=== PATIENT | male | born 1950 | race Caucasian/White ===

== ENCOUNTER → 2020-06-21 12:19 | Outpatient (CLI) | payer MEDICARE, OTHER, SELFPAY ==
[2020-06-14 07:41] VITALS: BMI 33.7
--- NOTE | 2020-06-21 12:45 | CT_ITS ---
STUDY: LOW DOSE CT LUNG CANCER SCREENING REASON FOR EXAM: Male, 69 years old. Screening. Patient smoked 1 pack per day for 30 years. RADIATION DOSAGE (If Supplied By Facility): CTDIvol = ( 4.02 ) mGy, DLP = ( 139.44 ) mGycm TECHNIQUE: No contrast was administered. Low dose technique was utilized (average mAS-38 and kVp 120). 1.25 mm axial source images with a slice interval of 1.25-mm were reconstructed in lung windows. 2.5 mm axial source images with a slice interval of 2.5-mm were reconstructed in lung windows. 5.0 mm axial source images with a slice interval of 5.0-mm were reconstructed in soft tissue windows. Nodule measured using lung windows on PACS and/or independent workstation with automated measurement of minimum and maximum diameter. Nodule measurement reported as average diameter rounded to the nearest whole number. Growth is defined as an increase ins size of greater than 1.5 mm. COMPARISON: None. NODULES: No suspicious nodules are seen. Emphysema: Hyperinflation. Diffuse increased interstitial markings with areas of confluence. Subpleural blebs. Findings are inconclusive for the chronic interstitial fibrosis. Endobronchial lesion: None Aorta: Minimal calcific plaque at the level of the aortic arch. Coronary arteries: Minimal coronary calcification. Mediastinal nodes: Small benign appearing mediastinal lymph nodes. Other chest and abdominal findings: Degenerative changes of the thoracic vertebrae. CT/Low Dose CT Lung Screening IMPRESSION: Lung-RADS category 2 - Continue annual screening with LDCT in 12 months. IMPORTANT NOTES FOR USE: ACR Lung-RADS Version 1.1 Assessment Categories Release Date: 2018 Category: Coded 0-4 bases on nodule(s) with highest degree of suspicion. Negative screen is defined as categories 1 and 2; a positive screen is defined as categories 3 and 4. Category 3 and 4A nodules that are unchanged on interval CT should be coded as category 2, and individuals returned to screening in 12 months. Category 4X: Category 3 or 4 nodules with additional imaging findings that increase the suspicion of lung cancer, such as spiculation, GGN that doubles in size in 1 year, enlarged lymph notes, etc. Category Modifiers: S (significant finding unrelated to lung cancer) Electronically Signed: Louie Dyer MD at 14:36 EDT , Service support ,
== END ==
PROVIDERS: PCP Family Medicine; Referring Provider Internal Medicine Critical Care Medicine; Visit Provider Internal Medicine Critical Care Medicine
DX: Z87.891 Personal history of nicotine dependence (principal)
CPT/HCPCS: 71271

== ENCOUNTER → 2020-06-26 09:33 | Outpatient (CLI) | payer MEDICARE, OTHER, SELFPAY ==
[2020-06-14 07:41] VITALS: BMI 33.7
--- NOTE | 2020-06-27 10:12 | PFT ---
INTRODUCTION: The patient is a 70-year-old male that presents for pulmonary function studies secondary to a diagnosis of shortness of breath. Respiratory therapy reports good patient effort. Bronchodilators were used during testing. INTERPRETATION: Forced expiration spirometry demonstrates no evidence of a large airways obstructive ventilatory defect. There was no significant response to aerosolized bronchodilators. Spirograms are of good quality and plateau normally. Body plethysmography was performed and reveals a decreased TLC to 3.76 L, 62% of predicted, indicative of a moderate restrictive ventilatory impairment. Diffusing capacity by single breath CO is reduced at 37% of predicted. 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
== END ==
PROVIDERS: PCP Family Medicine; Referring Provider Internal Medicine Critical Care Medicine; Visit Provider Internal Medicine Critical Care Medicine
DX: R06.02 Shortness of breath (principal)
CPT/HCPCS: 94060; 94726; 94729

== ENCOUNTER → 2020-07-04 12:38 | Outpatient (CLI) | payer MEDICARE, OTHER, SELFPAY ==
[2020-06-14 07:41] VITALS: BMI 33.7
[2020-07-04 13:02] VITALS: PULSE 60; PULSE 64; PULSE 76; PULSE 77; PULSE 78; PULSE 79; PULSE 81; PULSE 90; O2SAT 86; O2SAT 90; O2SAT 92; O2SAT 93; O2SAT 94; O2SAT 96
--- NOTE | 2020-07-04 13:05 | CPS ---
PATIENT USED CANE DURING 6 MIN WALK TEST FOR STABILITY. PATIENT'S BASELINE RESPIRATORY STATUS TODAY RATED MODERATELY SOB(CURRENTLY HIS BASELINE). WALK BEGAN ON ROOM AIR, SPO2 FELL TO 86% SO PATIENT RESTED, OXYGEN APPLIED AT 2LPM, REMAINED TO 2LPM FOR DURATION OF TESTING. NO OTHER REST BREAKS TAKEN BY PATIENT. PATIENT REQUESTS OXYGEN SET UP BE THROUGH A DME CLOSE TO HIS RESIDENCE IN [place].
--- NOTE | 2020-07-04 14:00 | PCM.PSN.6M ---
PSN 6 Minute Walk Test 6 Minute Walk Test 6 Minute Walk Test: 6 Minute Walk Test PSN:6-Minute Walk Test Start: 07/04/20 13:02 Freq: Status: Active Protocol: [id number] Document 07/04/20 13:02 [facility] (Rec: 07/04/20 13:15 [facility] [id number]) 6 Minute Walk Test Date Performed 07/04/20 Time Performed 12:30 Height 5 ft 8 in Weight: 99.79 kg Weight in Pounds 220.[address]: Eron Huff Assistive device used: Cane Pre-test Oxygen Delivery Method Room Air Pulse Ox (%) 94 Pulse Rate (60-100 beats/min) 60 Dyspnea Rika Scale (0-10) 3 Reported Symptoms Increased Work of Breathing 1st minute Oxygen Delivery Method Room Air Pulse Ox (%) 93 Pulse Rate (60-100 beats/min) 81 Dyspnea Rika Scale (0-10) 4 Number of Rests Taken 0 Reported Symptoms Increased Work of Breathing 2nd minute Oxygen Delivery Method Room Air Pulse Ox (%) 86 Pulse Rate (60-100 beats/min) 90 Dyspnea Rika Scale (0-10) 4 Number of Rests Taken 1 Reported Symptoms Cyanotic,Increased Work of Breathing 3rd minute Oxygen Flow Rate (L/min) (L/min) 2 Oxygen Delivery Method Nasal Cannula Pulse Ox (%) 96 Pulse Rate (60-100 beats/min) 78 Dyspnea Rika Scale (0-10) 3 Number of Rests Taken 0 Reported Symptoms Increased Work of Breathing 4th minute Oxygen Flow Rate (L/min) (L/min) 2 Oxygen Delivery Method Nasal Cannula Pulse Ox (%) 93 Pulse Rate (60-100 beats/min) 77 Dyspnea Rika Scale (0-10) 4 Number of Rests Taken 0 Reported Symptoms Increased Work of Breathing 5th minute Oxygen Flow Rate (L/min) (L/min) 2 Oxygen Delivery Method Nasal Cannula Pulse Ox (%) 92 Pulse Rate (60-100 beats/min) 79 Dyspnea Rika Scale (0-10) 4 Number of Rests Taken 0 Reported Symptoms Increased Work of Breathing 6th minute Oxygen Flow Rate (L/min) (L/min) 2 Oxygen Delivery Method Nasal Cannula Pulse Ox (%) 90 Pulse Rate (60-100 beats/min) 76 Dyspnea Rika Scale (0-10) 4 Number of Rests Taken 0 Reported Symptoms Increased Work of Breathing Post-test Oxygen Delivery Method Room Air Pulse Ox (%) 94 Pulse Rate (60-100 beats/min) 64 Dyspnea Rika Scale (0-10) 3 Reported Symptoms Increased Work of Breathing Full Laps Walked 12 Partial Lap, Number of Tiles Walked 24 Total Distance Walked (ft) 732 07/04/20 13:05 Cardiopulmonary Services by Ema Hutton PATIENT USED CANE DURING 6 MIN WALK TEST FOR STABILITY. PATIENT'S BASELINE RESPIRATORY STATUS TODAY RATED MODERATELY SOB(CURRENTLY HIS BASELINE). WALK BEGAN ON ROOM AIR, SPO2 FELL TO 86% SO PATIENT RESTED, OXYGEN APPLIED AT 2LPM, REMAINED TO 2LPM FOR DURATION OF TESTING. NO OTHER REST BREAKS TAKEN BY PATIENT. PATIENT REQUESTS OXYGEN SET UP BE THROUGH A DME CLOSE TO HIS RESIDENCE IN [place]. Initialized on 07/04/20 13:05 - END OF NOTE Interpretation Interpretation: The patient was noted to be 94% on room air at rest. The patient then ambulated with the assistance of a cane and 1 break a total of 732 feet. The patient did desaturate in the second minute to 86% and required 2 L nasal cannula. The patient saturations were controlled on 2 L. These findings are consistent with a respiratory limitation exercise tolerance. Recommendations Recommendations: The patient requires no supplemental oxygen at rest, but should be using 2 L nasal cannula with any exertion.
== END ==
PROVIDERS: PCP Family Medicine; Referring Provider Internal Medicine Critical Care Medicine; Visit Provider Internal Medicine Critical Care Medicine
DX: R06.02 Shortness of breath (principal)
CPT/HCPCS: 94618

== ENCOUNTER → 2020-11-15 10:28 | Outpatient (CLI) | payer MEDICARE, OTHER, SELFPAY ==
[2020-11-15 11:01] LABS: Erythrocyte Sedimentation Rate 16 mm/hr (0-20)
[2020-11-15 11:27] LABS: Rheumatoid Factor < 10.0 IU/mL (<15)
[2020-11-16 14:30] LABS: ANTINUCLEAR ANTIBODIES DIRECT Negative (Negative)
[2020-11-17 13:07] LABS: Cytoplasmic Ab (C-ANCA) <1:20 titer (Neg:<1:20)
[2020-11-17 13:23] LABS: CCP IgG Antibodies 7 units (0-19); Perinuclear Ab (P-ANCA) <1:20 titer (Neg:<1:20)
== END ==
PROVIDERS: PCP Family Medicine; Visit Provider Internal Medicine Critical Care Medicine
DX: J84.10 Pulmonary fibrosis, unspecified (principal)
CPT/HCPCS: 36415; 85652; 86038; 86140; 86200; 86225; 86235; 86256; 86431

== ENCOUNTER → 2020-11-29 10:58 | Outpatient (CLI) | payer MEDICARE, OTHER, SELFPAY ==
--- NOTE | 2020-11-29 11:02 | ECHOCS_ITS ---
Reason For Study: PULMONARY HYPERTENSION Procedure This was a 2D Doppler, Color Flow transthoracic echocardiogram. The study was technically difficult. Exam performed in department. Left Ventricle Normal LV size. The estimated ejection fraction is 60 %. No evidence for diastolic dysfunction. No regional wall motion abnormalities noted. Right Ventricle Normal RV size. Normal systolic function. Atria Normal left atrium. Normal right atrium. No doppler evidence for ASD. Bubble contrast study negative for right to left interatrial shunt. Mitral Valve There is no mitral valve stenosis. Trivial mitral valve insufficiency. Tricuspid Valve There is no tricuspid stenosis. Mild tricuspid valve insufficiency. Pulmonary artery systolic pressure is 65 mmHg. Aortic Valve There is no aortic stenosis. No aortic valve insufficiency. Pulmonic Valve There is no pulmonic valvular stenosis. No pulmonic valve insufficiency. Great Vessels Normal aortic root. Pericardium/Pleural No pericardial effusion. Medication 22 gauge I.V. with prn adaptor inserted into right arm. Diluted definity 2ml given slow IV push to enhance endocardial definition. Performed a rapid injection of agitated mix of 9 cc saline and 1cc air to assess for atrial septal defect. MMode/2D Measurements & Calculations LVIDd: 5.2 cm IVSd: 0.75 cm LAV(MOD-bp): 62.6 ml LVIDs: 3.4 cm LVPWd: 0.74 cm RVDd: 3.7 cm FS: 35.0 % LAV(MOD-bp) Indexed: 31.0 ml/m2 LAV(MOD-sp2): 56.0 ml LAV(MOD-sp4): 61.5 ml SV(MOD-sp4): 84.0 ml SV(sp4-el): 89.0 ml LVAd ap4: 37.8 cm2 LVLd ap4: 8.8 cm EDV(MOD-sp4): 132.6 ml EDV(sp4-el): 138.0 ml LVAs ap4: 19.7 cm2 LVLs ap4: 6.7 cm ESV(MOD-sp4): 48.7 ml ESV(sp4-el): 49.0 ml EF(MOD-sp4): 63.3 % EF(sp4-el): 64.5 % LA A4 area: 23.7 cm2 RA A4 area: 24.5 cm2 Time Measurements MV dec time: 0.23 sec Doppler Measurements & Calculations MV E max joseph: 79.0 cm/sec Lat Peak E' Joseph: 13.6 cm/sec Med Peak E' Joseph: 8.8 cm/sec MV A max joseph: 63.9 cm/sec E/E' lat: 5.8 E/E' med: 9.0 MV E/A: 1.2 Ao V2 max: 129.1 cm/sec LV V1 max: 98.7 cm/sec PA V2 max: 73.9 cm/sec Ao max P.7 mmHg LV V1 max P.9 mmHg TR max joseph: 381.7 cm/sec TR max P.3 mmHg ECHO/Echo Complete W/ Contrast Interpretation Summary The estimated ejection fraction is 60 %. No evidence for diastolic dysfunction. Trivial mitral valve insufficiency. Pulmonary artery systolic pressure is 65 mmHg. Ordering Physician: Eron Huff Referring Physician: KIYA GILBERT Performed By: Berta Burns RDCS
== END ==
PROVIDERS: PCP Family Medicine; Referring Provider Internal Medicine Critical Care Medicine; Visit Provider Internal Medicine Critical Care Medicine
DX: J96.11 Chronic respiratory failure with hypoxia (principal); Z99.81 Dependence on supplemental oxygen; I27.20 Pulmonary hypertension, unspecified
CPT/HCPCS: 93306; Q9957; A4216; C8929; J3490